=== PATIENT | male | born 1945 | race Caucasian/White ===

== ENCOUNTER 2019-02-01 21:40 | Emergency (ER) | payer MEDICARE ==
[~2019-02-01] VITALS: Ht 195.6 cm; Wt 93.0 kg
[~2019-02-01 21:40] MED LIST: ASPRIN PO; ATEN25; CYCL10; GABA100; OXYACE5T PO; OXYCODONE; RXOXYACE PO
[2019-02-01] MEDS ORDERED: ALBU3IS (22:21)
[2019-02-01] MEDS ORDERED: ASCO500 PO (22:22)
[2019-02-01] MEDS ORDERED: ALLO300 PO (22:22)
[2019-02-01] MEDS ORDERED: ALBU90OI INH (22:22)
[2019-02-01] MEDS ORDERED: ATOR40TA PO (22:23)
[2019-02-01] MEDS ORDERED: ASCO500 (22:23)
[2019-02-01] MEDS ORDERED: BENZ100A (22:23)
[2019-02-01 22:25] LABS: BASOPHILS ABSOLUTE AUTO 0.08 K/mm3 (0.00-0.23); BASOPHILS PERCENT AUTO 1 % (0-2); EOSINOPHILS ABSOLUTE AUTO 0.32 K/mm3 (0.00-0.68); EOSINOPHILS PERCENT AUTO 4 % (0-6); Hematocrit 36.7 % (37.0-53.0); Hemoglobin 12.4 g/dL (13.5-17.5); IMMATURE GRAN ABSOLUTE AUTO 0.02 K/mm3 (0.00-0.10); IMMATURE GRAN PERCENT AUTO 0 % (0-1); LYMPHOCYTES ABSOLUTE AUTO 2.17 K/mm3 (0.84-5.20); LYMPHOCYTES PERCENT AUTO 24 % (21-46); MONOCYTES ABSOLUTE AUTO 0.78 K/mm3 (0.16-1.47); MONOCYTES PERCENT AUTO 9 % (4-13); Mean Corpuscular HGB 30.3 pg (26.0-34.0); Mean Corpuscular HGB Conc 33.8 g/dL (31.5-36.5); Mean Corpuscular Volume 90 fL (80-100); Mean Platelet Volume 9.9 fL (9.1-12.4); NEUTROPHILS ABSOLUTE AUTO 5.82 K/mm3 (1.96-9.15); NEUTROPHILS PERCENT AUTO 63 % (41-73); Platelet Count 216 K/mm3 (150-400); RDW Coefficient Variation 13.3 % (11.7-14.2); RDW Standard Deviation 43.6 fL (35.1-46.3); Red Blood Cell Count 4.09 M/mm3 (4.30-5.90); White Blood Cell Count 9.19 K/mm3 (4.00-11.30)
[2019-02-01] MEDS ORDERED: Calcium 600+D1 EAC2 PO (22:25)
[2019-02-01] MEDS ORDERED: CHLO25B PO (22:26)
[2019-02-01] MEDS ORDERED: CVS LUBRICATING15 ML (22:26)
[2019-02-01] MEDS ORDERED: DOCU100 PO (22:27)
[2019-02-01] MEDS ORDERED: CYCL10 PO (22:27)
[2019-02-01] MEDS ORDERED: DIPH50 PO (22:27)
[2019-02-01] MEDS ORDERED: FISH OIL 1,001000 MG PO (22:28)
[2019-02-01] MEDS ORDERED: Flonase 0.05% N16 GM (22:28)
[2019-02-01] MEDS ORDERED: LEVSOD25 PO (22:29)
[2019-02-01] MEDS ORDERED: LACT PO (22:29)
[2019-02-01] MEDS ORDERED: MONT10T PO (22:30)
[2019-02-01] MEDS ORDERED: MELA3 PO (22:30)
[2019-02-01] MEDS ORDERED: TERA5 PO (22:31)
[2019-02-01] MEDS ORDERED: OMEPRAZOLE20 MG PO (22:31)
[2019-02-01] MEDS ORDERED: VALS80 PO (22:32)
[2019-02-01 22:41] LABS: Prothrombin Time Results 10.6 Sec (9.7-11.5)
[2019-02-01 22:47] LABS: Alanine Aminotransfer (ALT/SGP 23 U/L (12-78); Albumin, Blood 2.9 g/dL (3.4-5.0); Albumin/Globulin Ratio 0.9 (0.8-1.8); Alk Phos 61 U/L (50-136); Anion Gap 6 mmol/L (6-16); Aspartate Aminotrans (AST/SGOT 19 U/L (12-37); Bilirubin, Total 0.6 mg/dL (0.1-1.0); Blood Urea Nitrogen 19 mg/dL (8-24); Bun/Creatinine Ratio 15.1 (12.0-20.0); CO2, Blood 29 mmol/L (21-32); Calcium, Blood 8.1 mg/dL (8.5-10.1); Chloride, Blood 107 mmol/L (98-108); Creatinine, Blood 1.26 mg/dL (0.60-1.20); Globulin, Blood 3.3 g/dL (2.2-4.0); Glomerular Filtration Rate 59 (60-); Glucose, Blood 96 mg/dL (70-99); Potassium, Blood 3.8 mmol/L (3.5-5.5); Sodium, Blood 142 mmol/L (136-145); Total Protein, Blood 6.2 g/dL (6.4-8.2); Troponin I <0.015 ng/mL (0.000-0.040)
[2019-02-01] MEDS ORDERED: CLOP75 PO (23:48)
== END 2019-02-02 00:02 | disposition home or self-care (01) ==
LOC: ER 21:40
PROVIDERS: Emergency Medicine
DX: G45.9 Transient cerebral ischemic attack, unspecified (principal); Z88.6 Allergy status to analgesic agent; Z79.899 Other long term (current) drug therapy; Z79.82 Long term (current) use of aspirin; Z79.891 Long term (current) use of opiate analgesic
CPT/HCPCS: 36415; 70496; 80053; 84484; 85025; 85610; 85730; 93005; 93010; 96374-59; 99285-25; J3010; Q9967

== ENCOUNTER 2020-11-26 21:34 | Emergency (ER) | payer MEDICARE ==
[~2020-11-26] VITALS: Ht 165.1 cm; Wt 109.3 kg
[~2020-11-26 21:34] MED LIST changes: +ALBU3IS; +ALBU90OI INH; +ALLO300 PO; +ASCO500; +ASCO500 PO; -ATEN25; +ATEN25 PO; +ATOR40TA PO; +BENZ100A; +CHLO25B PO; +CLOP75 PO; +CVS LUBRICATING15 ML; +CYCL10 PO; +Calcium 600+D1 EAC2 PO; +DIPH50 PO; +DOCU100 PO; +FISH OIL 1,001000 MG PO; +Flonase 0.05% N16 GM; -GABA100; +GABA100 PO; +LACT PO; +LEVSOD25 PO; +MELA3 PO; +MONT10T PO; +OMEPRAZOLE20 MG PO; -OXYCODONE; +OXYCODONE PO; +TERA5 PO; +VALS80 PO
[2020-11-26] MEDS ORDERED: ZADITOR5 M1 BOTHEYES (21:59)
[2020-11-26] MEDS ORDERED: LIDO700A20 TOP (21:59)
[2020-11-26] MEDS ORDERED: ALLERCLEAR10 MG PO (22:00)
[2020-11-26 22:02] LABS: BASOPHILS ABSOLUTE AUTO 0.05 K/mm3 (0.00-0.23); BASOPHILS PERCENT AUTO 1 % (0-2); EOSINOPHILS ABSOLUTE AUTO 0.33 K/mm3 (0.00-0.68); EOSINOPHILS PERCENT AUTO 4 % (0-6); Hemoglobin 13.3 g/dL (13.5-17.5); IMMATURE GRAN ABSOLUTE AUTO 0.01 K/mm3 (0.00-0.10); IMMATURE GRAN PERCENT AUTO 0 % (0-1); LYMPHOCYTES PERCENT AUTO 36 % (21-46); MONOCYTES ABSOLUTE AUTO 0.59 K/mm3 (0.16-1.47); MONOCYTES PERCENT AUTO 8 % (4-13); Mean Corpuscular HGB 31.3 pg (26.0-34.0); Mean Corpuscular Volume 89 fL (80-100); Mean Platelet Volume 9.7 fL (9.1-12.4); NEUTROPHILS ABSOLUTE AUTO 4.08 K/mm3 (1.96-9.15); NEUTROPHILS PERCENT AUTO 52 % (41-73); Platelet Count 231 K/mm3 (150-400); RDW Coefficient Variation 13.2 % (11.7-14.2); RDW Standard Deviation 43.1 fL (35.1-46.3); Red Blood Cell Count 4.25 M/mm3 (4.30-5.90); White Blood Cell Count 7.86 K/mm3 (4.00-11.30)
[2020-11-26 22:20] LABS: Alanine Aminotransfer (ALT/SGP 28 U/L (12-78); Albumin/Globulin Ratio 0.8 (0.8-1.8); Alk Phos 89 U/L (50-136); Anion Gap 7 mmol/L (6-16); Aspartate Aminotrans (AST/SGOT 21 U/L (12-37); Bilirubin, Total 0.5 mg/dL (0.1-1.0); Blood Urea Nitrogen 25 mg/dL (8-24); Bun/Creatinine Ratio 21.2 (12.0-20.0); CO2, Blood 25 mmol/L (21-32); Calcium, Blood 8.4 mg/dL (8.5-10.1); Chloride, Blood 110 mmol/L (98-108); Creatinine, Blood 1.18 mg/dL (0.60-1.20); Globulin, Blood 3.8 g/dL (2.2-4.0); Glomerular Filtration Rate >60 (60-); Glucose, Blood 148 mg/dL (70-99); Potassium, Blood 4.1 mmol/L (3.5-5.5); Sodium, Blood 142 mmol/L (136-145); Total Protein, Blood 6.8 g/dL (6.4-8.2); Troponin I <0.015 ng/mL (0.000-0.040)
== END 2020-11-26 22:52 | disposition home or self-care (01) ==
LOC: ER 21:34
PROVIDERS: Student in an Organized Health Care Education/Training Program
DX: I20.8 Other forms of angina pectoris (principal); Z79.899 Other long term (current) drug therapy
CPT/HCPCS: 36415; 71046; 80053; 83690; 83880; 84484; 85025; 93005; 93010; 99285-25

== ENCOUNTER 2021-02-14 09:29 | Day surgery (SDC) | payer OTHER, MEDICARE ==
[~2021-02-14] VITALS: Ht 165.1 cm; Wt 97.0 kg
[~2021-02-14 09:29] MED LIST changes: +ALLERCLEAR10 MG PO; +LIDO700A20 TOP; +ZADITOR5 M1 BOTHEYES
[2021-02-14] MEDS ORDERED: NITR.4SL SL (10:10)
--- NOTE | 2021-02-14 10:53 | NUR ---
PATIENT AWAITING HIS PROCEDURE. SITITNG ON SIDE OF THE BED AND TRYING TO GET COMFORTABLE. PATIENT HAS CHRONIC LOW BACK PAIN AND HE DID NOT TAKE HIS OXYCODONE OR GABAPENTIN THIS MORNING. HE DID NOT THINK THAT IT WAS OK TO TAKE WITH THE PROCEDURE THIS A.M.
--- NOTE | 2021-02-14 15:09 | NUR ---
1450 PATIENT RETURNED FROM THE [facility]. RIGHT GROIN ANGIOSEAL SITE CDI WITH DRESSING IN PLACE. PATIENT PLACED ON THE MONITOR AND PATIENT C/O SUDDEN ONSET OF NAUSEA. COOL CLOTH TO FORHEAD. FAN ON PATIENT, MONITOR SHOWS SR. 1ST DEGREE AV BLOCK. NO VOMITING NOTED. NAUESA SUBSIDED AFTER 2-3 MINUTES. CALLED ADN IS ON HER WAY TO THE BEDSIDE. SBAR RECEIVED FROM DAKOTAH MILLER. PEDAL PULSE 2+, HOB FLAT, IN REVERSE TRENDELENBERG.
--- NOTE | 2021-02-14 16:12 | NUR ---
1600 PATIENT VERY UNCOMFORTABLE (LOW BACK) PAIN FROM THE LOW BACK. ADJUSTED FOR COMFORT. CONTINUE TO MONITOR. REPOSITIONED AND HOB UP 30 DEGREES.
--- NOTE | 2021-02-14 16:29 | NUR ---
PATIENT PIV REMOVED AND PRESSURE DRESSING APPLIED. RIGHT GROIN UNCHANGED. VVS.
--- NOTE | 2021-02-14 16:43 | NUR ---
PATIENT UP TO THE RESTROOM AND VOIDED. BACK TO BEDSIDE AND SAT ON THE SIDE OF THE BED. GROIN SITE UNCHANGED.
--- NOTE | 2021-02-14 16:54 | NUR ---
REVIEWED ALL DISCHARGE INFORMATION, SIGNATURES OBTAINED AND COPIES GIVEN.
--- NOTE | 2021-02-14 17:27 | NUR ---
DR. CANTU TO THE BEDSDIE AND SPOKE WITH THE PATIENT AND . FOLLOW UP APPOINTMENT NOTED. IMFORMED DR. CANTU OF A FLUTTER ON ARRIVAL THIS MORNING BUT 1 DEGREE AVB ON ARRIVAL BACK FROM THE [facility]. ECG STRIPS ON THE CHART.
--- NOTE | 2021-02-14 17:28 | NUR ---
PATIENT GATHERED ALL BELONGINGS AND DISHCARGE INSTRUCTIONS AND TO THE WHEELCHAIR FOR DISCHARGE HOME. DRIVING.
== END 2021-02-14 17:00 | disposition home or self-care (01) ==
LOC: MHTC 09:29
DX: R07.9 Chest pain, unspecified (principal); R06.00 Dyspnea, unspecified; R53.83 Other fatigue; I25.10 Atherosclerotic heart disease of native coronary artery without angina pectoris; I10 Essential (primary) hypertension; E78.5 Hyperlipidemia, unspecified; E03.9 Hypothyroidism, unspecified; K57.90 Diverticulosis of intestine, part unspecified, without perforation or abscess without bleeding; G47.33 Obstructive sleep apnea (adult) (pediatric); E88.81 Metabolic syndrome and other insulin resistance; R73.9 Hyperglycemia, unspecified; M10.9 Gout, unspecified; J44.9 Chronic obstructive pulmonary disease, unspecified; E66.9 Obesity, unspecified; I44.0 Atrioventricular block, first degree; I73.9 Peripheral vascular disease, unspecified; I70.8 Atherosclerosis of other arteries; I48.92 Unspecified atrial flutter; Z95.1 Presence of aortocoronary bypass graft; Z68.35 Body mass index [BMI] 35.0-35.9, adult
CPT/HCPCS: 75736; 76937; 93455; 99152; 99153; C1760; C1769; C1894; J1644; J2250; J3010; J7030; Q9967

== ENCOUNTER 2021-09-13 08:17 | Day surgery (SDC) | payer OTHER ==
[~2021-09-13] VITALS: Ht 165.1 cm; Wt 90.3 kg
[~2021-09-13 08:17] MED LIST changes: -ASCO500; -BENZ100A; +BENZ100A PO; +NITR.4SL SL; +OXYC5 PO; -OXYCODONE PO
[2021-09-13] MEDS ORDERED: ELIQUIS5 M2 PO (09:24)
--- NOTE | 2021-09-13 15:00 | NUR ---
DR BARRIOS TO ROOM DISCUSSING PLAN OF CARE. PT BILATERAL FEMORAL SITES REMAIN CLEAR. NO BLEEDING OR HEMATOMA NOTED. VSS. NADN.
--- NOTE | 2021-09-13 15:38 | NUR ---
PT AND S/O VERBALIZES UNDERSTANDING WRITTEN AND VERBAL INSTRUCTIONS. DENIES QUESTIONS. VSS. NADN. PT DRESSES SELF WITH MINIMAL ASSISTANCE. IV DC.D CATH INTACT. PRESSURE DSG APPLIED. PT DC TO HOME VIA S/O BY [facility].
== END 2021-09-13 16:01 | disposition home or self-care (01) ==
LOC: MHTC 08:17
DX: I70.213 Atherosclerosis of native arteries of extremities with intermittent claudication, bilateral legs (principal); I72.3 Aneurysm of iliac artery; I10 Essential (primary) hypertension; I25.10 Atherosclerotic heart disease of native coronary artery without angina pectoris; J44.9 Chronic obstructive pulmonary disease, unspecified; Z20.822 Contact with and (suspected) exposure to COVID-19
CPT/HCPCS: 37221; 75625; 75716; 75774; 76937; 99152; 99153; C1725; C1760; C1769; C1874; C1887; C1894; J1644; J2250; J3010; J7030; J7050; Q9967

== ENCOUNTER 2022-10-22 23:03 | Emergency (ER) | payer OTHER ==
[~2022-10-22] VITALS: Ht 165.1 cm; Wt 86.2 kg
[~2022-10-22 23:03] MED LIST changes: +ELIQUIS5 M2 PO; +TAMS.4ER PO
[2022-10-22 23:30] LABS: BASOPHILS ABSOLUTE AUTO 0.07 K/mm3 (0.00-0.23); BASOPHILS PERCENT AUTO 1 % (0-2); EOSINOPHILS ABSOLUTE AUTO 0.32 K/mm3 (0.00-0.68); EOSINOPHILS PERCENT AUTO 3 % (0-6); Hematocrit 41.3 % (37.0-53.0); Hemoglobin 14.5 g/dL (13.5-17.5); IMMATURE GRAN ABSOLUTE AUTO 0.03 K/mm3 (0.00-0.10); IMMATURE GRAN PERCENT AUTO 0 % (0-1); LYMPHOCYTES ABSOLUTE AUTO 2.97 K/mm3 (0.84-5.20); LYMPHOCYTES PERCENT AUTO 28 % (21-46); MONOCYTES ABSOLUTE AUTO 0.58 K/mm3 (0.16-1.47); MONOCYTES PERCENT AUTO 6 % (4-13); Mean Corpuscular HGB 31.1 pg (26.0-34.0); Mean Corpuscular HGB Conc 35.1 g/dL (31.5-36.5); Mean Corpuscular Volume 89 fL (80-100); Mean Platelet Volume 9.8 fL (9.1-12.4); NEUTROPHILS PERCENT AUTO 62 % (41-73); NRBC ABSOLUTE 0.07 K/mm3 (0.00-0.02); NRBC Auto 0.7 /100 WBC (0.0-0.2); Platelet Count 233 K/mm3 (150-400); RDW Coefficient Variation 13.4 % (11.7-14.2); RDW Standard Deviation 43.4 fL (35.1-46.3); Red Blood Cell Count 4.66 M/mm3 (4.30-5.90); White Blood Cell Count 10.57 K/mm3 (4.00-11.30)
[2022-10-23 00:36] LABS: Albumin, Blood 2.8 g/dL (3.4-5.0); Albumin/Globulin Ratio 0.7 (0.8-1.8); Bilirubin, Total 0.4 mg/dL (0.1-1.0); Bun/Creatinine Ratio 14.5 (12.0-20.0); Calcium, Blood 8.4 mg/dL (8.5-10.1); Creatinine, Blood 1.17 mg/dL (0.60-1.20); Globulin, Blood 3.8 g/dL (2.2-4.0); Potassium, Blood 3.9 mmol/L (3.5-5.5); Total Protein, Blood 6.6 g/dL (6.4-8.2)
== END 2022-10-23 03:32 | disposition home or self-care (01) ==
LOC: ER 23:03
PROVIDERS: Student in an Organized Health Care Education/Training Program
DX: R55 Syncope and collapse (principal); I25.2 Old myocardial infarction; J44.9 Chronic obstructive pulmonary disease, unspecified; I10 Essential (primary) hypertension; Z88.8 Allergy status to other drugs, medicaments and biological substances; Z79.899 Other long term (current) drug therapy; Z79.890 Hormone replacement therapy; Z79.01 Long term (current) use of anticoagulants; Z95.1 Presence of aortocoronary bypass graft
CPT/HCPCS: 36415; 71045; 80053; 84484; 85025; 93005; 93010; 96361; 96374; 99284-25; A9270; J2765; J7030

== ENCOUNTER 2023-08-15 20:22 | Observation (INO) | payer OTHER ==
[~2023-08-15] VITALS: Ht 175.3 cm; Wt 75.6 kg
[~2023-08-15 20:22] MED LIST changes: +EUTHYROX50 MCG PO; -LEVSOD25 PO
[2023-08-15 20:45] LABS: BASOPHILS ABSOLUTE AUTO 0.06 K/mm3 (0.00-0.23); BASOPHILS PERCENT AUTO 1 % (0-2); EOSINOPHILS ABSOLUTE AUTO 0.13 K/mm3 (0.00-0.68); EOSINOPHILS PERCENT AUTO 1 % (0-6); Hematocrit 41.6 % (37.0-53.0); Hemoglobin 14.4 g/dL (13.5-17.5); IMMATURE GRAN ABSOLUTE AUTO 0.04 K/mm3 (0.00-0.10); IMMATURE GRAN PERCENT AUTO 0 % (0-1); LYMPHOCYTES PERCENT AUTO 25 % (21-46); MONOCYTES ABSOLUTE AUTO 1.08 K/mm3 (0.16-1.47); MONOCYTES PERCENT AUTO 10 % (4-13); Mean Corpuscular HGB 30.5 pg (26.0-34.0); Mean Corpuscular HGB Conc 34.6 g/dL (31.5-36.5); Mean Corpuscular Volume 88 fL (80-100); Mean Platelet Volume 9.9 fL (9.1-12.4); NEUTROPHILS PERCENT AUTO 63 % (41-73); Platelet Count 227 K/mm3 (150-400); RDW Coefficient Variation 13.1 % (11.7-14.2); RDW Standard Deviation 42.8 fL (35.1-46.3); Red Blood Cell Count 4.72 M/mm3 (4.30-5.90); White Blood Cell Count 10.61 K/mm3 (4.00-11.30)
[2023-08-15 21:05] LABS: Albumin/Globulin Ratio 0.7 (0.8-1.8); Bilirubin, Total 0.5 mg/dL (0.1-1.0); Bun/Creatinine Ratio 17.5 (12.0-20.0); Calcium, Blood 8.7 mg/dL (8.5-10.1); Creatinine, Blood 1.2 mg/dL (0.60-1.20); Globulin, Blood 4.4 g/dL (2.2-4.0); Magnesium, Blood 1.8 mg/dL (1.6-2.4); Potassium, Blood 3.9 mmol/L (3.5-5.5); Total Protein, Blood 7.4 g/dL (6.4-8.2)
[2023-08-15 23:34] VITALS: BP 183/101
[2023-08-16 03:35] VITALS: BP 128/91
[2023-08-16] MEDS ORDERED: BENZ100A PO (04:18)
[2023-08-16] MEDS ORDERED: DIPH50 PO (04:18)
[2023-08-16] MEDS ORDERED: DOCU100 PO (04:19)
[2023-08-16] MEDS ORDERED: Flonase 0.05% N16 GM (04:19)
[2023-08-16] MEDS ORDERED: PRAHYD1AE TOP (04:20)
[2023-08-16] MEDS ORDERED: IPRAT-ALBUT 0.5-3 ML INH (04:21)
[2023-08-16] MEDS ORDERED: METO50ER PO (04:23)
[2023-08-16] MEDS ORDERED: NARCAN4 M1 (04:24)
[2023-08-16] MEDS ORDERED: OMEP20ER PO (04:25)
[2023-08-16] MEDS ORDERED: LUBRICANT EYE1 EAC1 BOTHEYES (04:25)
[2023-08-16 05:46] LABS: BASOPHILS ABSOLUTE AUTO 0.06 K/mm3 (0.00-0.23); BASOPHILS PERCENT AUTO 1 % (0-2); EOSINOPHILS ABSOLUTE AUTO 0.16 K/mm3 (0.00-0.68); EOSINOPHILS PERCENT AUTO 2 % (0-6); Hematocrit 37.9 % (37.0-53.0); Hemoglobin 13.3 g/dL (13.5-17.5); IMMATURE GRAN ABSOLUTE AUTO 0.02 K/mm3 (0.00-0.10); IMMATURE GRAN PERCENT AUTO 0 % (0-1); LYMPHOCYTES ABSOLUTE AUTO 2.34 K/mm3 (0.84-5.20); LYMPHOCYTES PERCENT AUTO 32 % (21-46); MONOCYTES PERCENT AUTO 12 % (4-13); Mean Corpuscular HGB 30.4 pg (26.0-34.0); Mean Corpuscular HGB Conc 35.1 g/dL (31.5-36.5); Mean Corpuscular Volume 87 fL (80-100); NEUTROPHILS ABSOLUTE AUTO 3.93 K/mm3 (1.96-9.15); NEUTROPHILS PERCENT AUTO 53 % (41-73); Platelet Count 224 K/mm3 (150-400); Red Blood Cell Count 4.37 M/mm3 (4.30-5.90); White Blood Cell Count 7.41 K/mm3 (4.00-11.30)
--- NOTE | 2023-08-16 06:14 | NUR ---
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 PT IS STABLE ON HIS FEET AND CAN SPEAK WITH NO IMPAIRMENTS. NO SIGNS OR SYMPTOMS OF STROKE AT THIS TIME. PT WAS GIVEN SOME PAIN MEDICATION FOR HIS CHRONIC BACK PAIN PER MD. PT'S VITAL SIGNS HAVE BEEN STABLE AND HE APPEARS TO BE BACK TO HIS BASELINE PER PT'S REPORT. BED IS IN LOWEST POSITION, CALL LIGHT IS WITHIN REACH.
[2023-08-16 06:23] LABS: Albumin, Blood 2.8 g/dL (3.4-5.0); Albumin/Globulin Ratio 0.7 (0.8-1.8); Bilirubin, Total 0.8 mg/dL (0.1-1.0); Bun/Creatinine Ratio 18.7 (12.0-20.0); Calcium, Blood 8.7 mg/dL (8.5-10.1); Creatinine, Blood 1.07 mg/dL (0.60-1.20); Potassium, Blood 3.6 mmol/L (3.5-5.5); Total Protein, Blood 6.8 g/dL (6.4-8.2)
[2023-08-16 07:48] VITALS: BP 118/86
[2023-08-16 11:22] LABS: Source, Urine Clean Catch
[2023-08-16 11:24] LABS: Bilirubin, Urine Neg (Neg); Blood, Urine 1+ (Neg); Color, Urine Yellow (P-Yellow); Glucose Qualitative, Urine Neg (Neg); Ketones, Urine Neg (Neg); Leukocyte Esterase, Urine 2+ (Neg); Nitrite, Urine Neg (Neg); Protein, Urine 3+ (Neg); Specific Gravity, Urine 1.015 (1.003-1.022); Urobilinogen, Urine NORM (Normal)
[2023-08-16 11:30] LABS: Appearance, Urine Hazy (Clear)
[2023-08-16 11:33] LABS: Bacteria Few /hpf; Mucus Light (0-Heavy); Squamous Epithelial Cells Few /hpf (Few)
[2023-08-16] MEDS ORDERED: ARTIFICIAL TEAR15 M6 BOTHEYES (14:59)
[2023-08-16] MEDS ORDERED: ASPI81CH PO (14:59)
--- NOTE | 2023-08-16 15:23 | NUR ---
DISCHARGE NOTE PT DISCHARGED TO HOME, PICKED UP BY HIS GRAND SON. IV REMOVED AND TELE RETUREND. DISCHARGE INFORMATION AND EDUCATION PROVIDED. MEDICATION[facility], TO BE FILLED AND PICKED UP TOMORROW. PT HAS BEEN MADE AWARE.
== END 2023-08-16 15:24 | disposition home or self-care (01) ==
LOC: ER 20:22 → MEDS 20:23
PROVIDERS: Student in an Organized Health Care Education/Training Program; ADMIT Internal Medicine
DX: I63.9 Cerebral infarction, unspecified (principal); R47.01 Aphasia; R47.81 Slurred speech; I25.2 Old myocardial infarction; I10 Essential (primary) hypertension; E78.5 Hyperlipidemia, unspecified; Z79.01 Long term (current) use of anticoagulants
CPT/HCPCS: 36415; 70450; 80053; 81001; 82947; 83735; 83880; 85025; 87086; 92610; 93005; 93010; 93306; 93880; 96372; 96374; 97161; 97165; 99285-25; A9270; G0378; J1650; J3010